=== PATIENT | female | born 1970 ===

== ENCOUNTER 2022-08-12 07:15 | Inpatient (IN) | payer OTHER ==
[~2022-08-12] VITALS: Ht 152.4 cm; Wt 82.1 kg
[2022-08-12] MEDS ORDERED: LOSARTAN-HCTZ1 EAC2 PO (09:23)
[2022-08-12] MEDS ORDERED: ZETIA10 MG PO (09:23)
[2022-08-12] MEDS ORDERED: ATORVAST PO (09:24)
== END 2022-08-20 13:30 | disposition home or self-care (01) | DRG 743 ==
LOC: O/R 08-18 05:00 → OB/GYN 08-18 05:00 → EDBD 08-18 07:15 → SURG 08-18 07:15 → OB/GYN 08-18 13:57
PROVIDERS: ADMIT Obstetrics & Gynecology; ATTEND Obstetrics & Gynecology
PROC: 0UT70ZZ Resection of Bilateral Fallopian Tubes, Open Approach (ICD-10-PCS; 2022-08-18)
PROC: 0UT90ZZ Resection of Uterus, Open Approach (ICD-10-PCS; principal; 2022-08-18 10:15)
PROC: 0UT20ZZ Resection of Bilateral Ovaries, Open Approach (ICD-10-PCS; 2022-08-19)
PROC: 0UN10ZZ Release Left Ovary, Open Approach (ICD-10-PCS; 2022-08-19)
PROC: 0DNW0ZZ Release Peritoneum, Open Approach (ICD-10-PCS; 2022-08-19)
DX: D25.1 Intramural leiomyoma of uterus (principal); N72 Inflammatory disease of cervix uteri; N73.6 Female pelvic peritoneal adhesions (postinfective); Z20.822 Contact with and (suspected) exposure to COVID-19